=== PATIENT | male | born 1965 | race Caucasian/White ===

== ENCOUNTER 2022-11-03 00:38 | Emergency (ER) | payer MEDICAID ==
[~2022-11-03] VITALS: Ht 180.3 cm; Wt 72.7 kg
[2022-11-03 01:19] VITALS: BP 157/97; PULSE 85; RESP 16; TEMP 98.1; O2SAT 97
== END 2022-11-03 02:11 | disposition home or self-care (01) ==
LOC: ER 00:39
DX: I10 Essential (primary) hypertension (principal); Z76.0 Encounter for issue of repeat prescription
CPT/HCPCS: 99283